=== PATIENT | female | born 1995 | race Caucasian/White ===

== ENCOUNTER 2018-11-04 10:55 | Emergency (ER) | payer SELFPAY ==
[~2018-11-04] VITALS: Ht 149.9 cm; Wt 50.0 kg
[2018-11-04 11:03] VITALS: TEMP 97.6
[2018-11-04 11:46] LABS: BASO # 0.1 (0.0-0.2); BASO % 0.9 % (0.0-2.0); EOS # 0.6 (0.0-0.7); EOS % 7.4 % (0-4.0); GRAN # 4.1 (1.4-6.5); GRAN % 55.5 % (42.2-75.2); HEMATOCRIT 44.9 % (37.0-47.0); LYMPH # 2.1 (1.2-3.4); LYMPH % 28.1 % (20.0-51.0); MEAN CELL VOLUME 92 fl (80.0-100.0); MEAN CORPUSCULAR HEMOGLOBIN 31 pg (27.0-31.0); MEAN CORPUSCULAR HGB CONC 33 g/dl (33.0-37.0); MEAN PLATELET VOLUME 10.5 fl (7.4-10.4); MONO # 0.6 (0.1-0.6); MONO % 7.7 % (1.7-9.3); PLATELET COUNT 290 K/mm3 (130-400); RED BLOOD COUNT 4.89 M/mm3 (4.10-5.30); REDCELL DISTRIBUTION WIDTH-CV 12.6 % (11.5-14.5)
[2018-11-04 11:58] LABS: ALBUMIN 4.5 gm/dL (3.5-5.0); BILIRUBIN,TOTAL 0.5 mg/dL (0.0-1.0); CALCIUM 9.7 mg/dL (8.4-10.2); CREATININE, serum 0.73 mg/dL (0.52-1.25); POTASSIUM 4.6 mmol/L (3.4-5.0); TOTAL PROTEIN 7.8 gm/dL (6.4-8.2)
[2018-11-04 11:59] LABS: COLLECTION METHOD CLEAN CATCH
[2018-11-04 12:05] LABS: PH 6 (5-8); SQUAMOUS EPITHELIAL 0-2 /hpf; URINE APPEARANCE Clear; URINE BACTERIA None Seen /hpf; URINE BILIRUBIN Negative (NEGATIVE); URINE BLOOD 1+ (NEGATIVE); URINE COLOR Yellow; URINE GLUCOSE Negative (NEGATIVE); URINE KETONE Negative (NEGATIVE); URINE LEUKOCYTE ESTERASE Negative (NEGATIVE); URINE NITRATE Negative (NEGATIVE); URINE PROTEIN(semi-quant) Negative (NEGATIVE); URINE RBC 0-2 /hpf; URINE UROBILINOGEN Negative (NEGATIVE); URINE WBC 0-2 /hpf
[2018-11-04] MEDS ORDERED: ANTIVERT 25MG25 MG PO (13:39)
[2018-11-04] MEDS ORDERED: ZOFRAN 4MG T4 MG/TAB PO (13:39)
[2018-11-04] MEDS ORDERED: ZESTRIL 10MG10 MG PO (13:39)
[2018-11-04 13:47] VITALS: BP 117/94; PULSE 57
== END 2018-11-04 13:49 | disposition home or self-care (01) ==
LOC: COL.ER 10:55
PROVIDERS: Nurse Practitioner Primary Care
DX: I10 Essential (primary) hypertension (principal)